=== PATIENT | female | born 1970 | race African-American/Black ===

== ENCOUNTER 2020-08-30 05:36 | Inpatient (IN) ==
[2020-08-24 14:59] LABS: Basophils % 0.8 % (0.0-0.8); Eosinophils # 0.1 10*3/uL (0.0-0.87); Eosinophils % 2.8 % (0.00-10.9); Hematocrit 34.4 VOL% (35.7-47.0); Hemoglobin 11.5 GM/DL (12.0-16.0); Immature Granulocytes % 0.3 %; Immature Granulocytes Absolute 0.01 #; Lymphocytes # 1.6 10*3/uL (1.4-4.0); Lymphocytes % 39.9 % (21.3-54.2); Mean Corpuscular HGB Conc 33.4 GM/DL (32-36); Mean Platelet Volume 10.2 FL (9.6-12.0); Monocytes % 9.1 % (1.7-12.7); Neutrophils % 47.1 % (38.7-73.9); Platelet Count 331 T/CUMM (130-400); Red Blood Count 3.78 MC/CUMM (3.8-5.5); Red Cell Distribution Width 12.6 % (9.3-17.3)
[2020-08-24 15:01] LABS: Bilirubin,Urine Negative (Negative); Blood, Urine Negative (Negative); Glucose,Urine (UA) Negative (Negative); Ketones,Urine 5 mg/dL (Negative); Mucus,Urine Occasional /LPF (Occasional); Nitrite,Urine Negative (Negative); Protein,Urine Negative; RBC,Urine 1 /HPF (0-4); Squamous Epithelial Cell,Urine Occasional /HPF (0-10); Urine Appearance CLEAR (Clear); Urine Color Yellow (Yellow); Urine Specific Gravity 1.025 (1.001-1.035); Urine Urobilinogen < 2.0 EU/DL (0.2-1.0); WBC,Urine <1 /HPF (0-6)
[2020-08-24 15:17] LABS: PT Patient Result 10.3 SECS (9.8-11.9); Partial Thromboplastin Time 29.1 SECS (23.9-33.8)
[2020-08-24 16:08] LABS: Albumin 4.2 G/DL (3.4-5.0); Bilirubin,Total 0.5 MG/DL (0.2-1.0); Calcium 9.5 MG/DL (8.5-10.1); Osmolality,Calculated 276.5 MOS/KG (273-304); Total Protein 7.6 G/DL (6.4-8.2)
[2020-08-30] MEDS ORDERED: VANCOMYCIN 1,000 MG VIAL ONE (06:22)
[2020-08-30] MEDS ORDERED: propofoL 200 MG/20 ML VIAL IV ONE ×2 (06:23→07:48)
[2020-08-30] MEDS ORDERED: ACETAMINOPHEN 500 MG TABLET ONE (06:23)
[2020-08-30] MEDS ORDERED: GABAPENTIN 400 MG CAPSULE ONE (06:23)
[2020-08-30] MEDS ORDERED: LIDOCAINE 2% 5 ML VIAL ONE (06:23)
[2020-08-30] MEDS ORDERED: FAMOTIDINE 20 MG TABLET ONE (06:23)
[2020-08-30] MEDS ORDERED: ceFAZolin 1,000 MG VIAL ONE (06:23)
[2020-08-30] MEDS ORDERED: fentaNYL 100 MCG/2 ML VIAL ONE (06:24)
[2020-08-30] MEDS ORDERED: MIDAZOLAM 2 MG/2 ML VIAL ONE ×2 (06:24→07:34)
[2020-08-30] MEDS ORDERED: VANCOMYCIN INJ 1,000 MG in SODIUM CHLORIDE 0.9% 250 ML IV ONE (06:30)
[2020-08-30] MEDS ORDERED: BUPIVACAINE MPF 0.25% 30 ML VIAL ONE (06:33)
[2020-08-30] MEDS ORDERED: BACITRACIN OINT 0.9 GM PACK TOP ONE ×2 (06:33→06:39)
[2020-08-30] MEDS ORDERED: FAMOTIDINE 20 MG TABLET PO STA (06:36)
[2020-08-30] MEDS ORDERED: ACETAMINOPHEN 500 MG TABLET PO STA (06:36)
[2020-08-30] MEDS ORDERED: GABAPENTIN 400 MG CAPSULE PO STA (06:37)
[2020-08-30] MEDS ORDERED: MUPIROCIN 2% OINT 22 GM TUBE TOP ONE (06:39)
[2020-08-30] MEDS ORDERED: LACTATED RINGERS 1,000 ML IV SCH (07:00)
[2020-08-30] MEDS ORDERED: BUPIVACAINE SPINAL 0.75% 2 ML AMP SPINAL ONE (07:03)
[2020-08-30] MEDS ORDERED: ePHEDrine 50 MG/ML VIAL ONE (07:27)
[2020-08-30] MEDS ORDERED: ceFAZolin 1,000 MG in SYRINGE 1 EACH IV ONE (07:30)
[2020-08-30] MEDS ORDERED: SODIUM CHLORIDE 0.9% 100 ML IV ONE (07:48)
[2020-08-30] MEDS ORDERED: TRANEXAMIC ACID 1,000 MG/10 ML VIAL ONE (07:48)
[2020-08-30] MEDS ORDERED: SODIUM CHLORIDE 0.9% 250 ML IV ONE (07:48)
[2020-08-30] MEDS ORDERED: PHENYLEPHRINE 1 MG/10 ML SYRINGE IV ONE (08:13)
[2020-08-30] MEDS ORDERED: ONDANSETRON 4 MG/2 ML VIAL ONE (08:21)
[2020-08-30] MEDS ORDERED: LACTATED RINGERS 1,000 ML IV ONE (08:23)
[2020-08-30] MEDS ORDERED: ZALEPLON 5 MG CAPSULE PO PRN (08:37)
[2020-08-30] MEDS ORDERED: MORPHINE 4 MG/1 ML VIAL IV PRN (08:37)
[2020-08-30] MEDS ORDERED: MAGNESIUM HYDROXIDE SUSP 30 ML UDCUP PO PRN (08:37)
[2020-08-30] MEDS ORDERED: IRON PO SCH (09:00)
[2020-08-30] MEDS ORDERED: ONDANSETRON 4 MG/2 ML VIAL IV PRN (11:55)
[2020-08-30] MEDS: HYDROmorphone 2 MG/1 ML VIAL IV PRN ×3 (12:00→14:15)
[2020-08-30] MEDS: ONDANSETRON 4 MG/2 ML VIAL IV PRN ×2 (14:14→18:47)
[2020-08-30] MEDS: KETOROLAC 30 MG/1 ML VIAL IV SCH ×3 (15:14→20:50)
[2020-08-30] MEDS: LACTATED RINGERS 1,000 ML IV SCH ×2 (18:17→20:51)
[2020-08-30] MEDS: CHOLECALCIFEROL 1,000 UNIT TABLET PO SCH (18:18)
[2020-08-30] MEDS: DOCUSATE SODIUM 100 MG CAPSULE PO SCH (20:50)
[2020-08-31] MEDS: MORPHINE 4 MG/1 ML VIAL IV PRN ×3 (00:29→13:43)
[2020-08-31] MEDS: KETOROLAC 30 MG/1 ML VIAL IV SCH (02:59)
[2020-08-31] MEDS: FONDAPARINUX 2.5 MG/0.5 ML SYRINGE SUBCUT SCH (05:14)
[2020-08-31] MEDS: LACTATED RINGERS 1,000 ML IV SCH (05:22)
[2020-08-31 05:34] LABS: Basophils % 0.2 % (0.0-0.8); Hematocrit 25.3 VOL% (35.7-47.0); Hemoglobin 8.4 GM/DL (12.0-16.0); Immature Granulocytes % 0.2 %; Immature Granulocytes Absolute 0.01 #; Lymphocytes # 0.5 10*3/uL (1.4-4.0); Lymphocytes % 9.2 % (21.3-54.2); Mean Corpuscular HGB Conc 33.2 GM/DL (32-36); Mean Corpuscular Volume 92.7 FL (87-102); Mean Platelet Volume 10.2 FL (9.6-12.0); Neutrophils % 82.4 % (38.7-73.9); Platelet Count 226 T/CUMM (130-400); Red Blood Count 2.73 MC/CUMM (3.8-5.5); Red Cell Distribution Width 12.8 % (9.3-17.3); White Blood Count 5.7 T/CUMM (4-12)
[2020-08-31 06:06] LABS: Calcium 8.2 MG/DL (8.5-10.1); Osmolality,Calculated 277.4 MOS/KG (273-304); Potassium 3.2 MMOL/L (3.5-5.1)
[2020-08-31] MEDS: DOCUSATE SODIUM 100 MG CAPSULE PO SCH ×2 (08:43→20:35)
[2020-08-31] MEDS: ONDANSETRON 4 MG/2 ML VIAL IV PRN (13:43)
[2020-09-01] MEDS: diphenhydrAMINE CAP 25 MG CAPSULE PO PRN ×2 (01:10→06:11)
[2020-09-01] MEDS: FONDAPARINUX 2.5 MG/0.5 ML SYRINGE SUBCUT SCH (05:04)
[2020-09-01 05:45] LABS: Basophils % 0.2 % (0.0-0.8); Eosinophils # 0.2 10*3/uL (0.0-0.87); Eosinophils % 4.8 % (0.00-10.9); Hematocrit 25.3 VOL% (35.7-47.0); Hemoglobin 8.1 GM/DL (12.0-16.0); Immature Granulocytes % 0.2 %; Immature Granulocytes Absolute 0.01 #; Lymphocytes % 21.7 % (21.3-54.2); Mean Corpuscular Volume 95.1 FL (87-102); Mean Platelet Volume 10.6 FL (9.6-12.0); Monocytes % 10.5 % (1.7-12.7); Neutrophils % 62.6 % (38.7-73.9); Platelet Count 224 T/CUMM (130-400); Red Blood Count 2.66 MC/CUMM (3.8-5.5); White Blood Count 4.4 T/CUMM (4-12)
[2020-09-01] MEDS: DOCUSATE SODIUM 100 MG CAPSULE PO SCH (08:58)
[2020-09-01] MEDS: CHOLECALCIFEROL 1,000 UNIT TABLET PO SCH (08:58)
[2020-09-01 11:10] VITALS: BP 102/60
== END 2020-09-01 13:33 | disposition home health service (06) | DRG 470 ==
LOC: N.OR 05:36 → N.SDSINP 05:41 → EDSTATUS 11:30 → N.3E 13:19
PROVIDERS: ADMIT Orthopaedic Surgery; ATTEND Orthopaedic Surgery